=== PATIENT | male | born 1940 | race African-American/Black ===

== ENCOUNTER 2016-11-28 09:50 | Inpatient (IN) | payer OTHER ==
[~2016-11-28] VITALS: Ht 180.3 cm; Wt 109.3 kg
[~2016-11-28 09:50] MED LIST: B-121000 MC2 PO; COLACE50 MG PO; COMBIVENT INH14.7 GM IH; ENDOCET 5-3251 EACH PO; FLEXERIL10 MG PO; HYDROCHLOROTHIA25 MG PO; HYTRIN10 MG PO; LOW DOSE ASPIRI81 M1 PO; OXYCODONE-ACET1 EACH PO; TRAMADOL HCL50 MG PO; ZESTRIL40 MG PO
[2016-11-28 11:03] LABS: EOSINOPHIL (%) 2.8 % (0-5); EOSINOPHIL COUNT 0.1 K/uL (0-0.3); HEMATOCRIT 37.6 % (38.0-50.0); IMMATURE GRANULOCYTE (%) 0.3 % (0.0-0.7); INSTRUMENT ABS NEUTROPHIL CT 1.6 K/uL; LYMPHOCYTE COUNT 1.7 K/uL (1.0-2.8); MCH 31.1 PG (29.0-34.0); MCV 94.2 FL (86-99); MEAN PLAT.VOLUME 10.1 uM^3 (9.0-12.4); MONOCYTE (%) 14.5 % (3-12); MONOCYTE COUNT 0.6 K/uL (0-0.8); NEUTROPHIL (%) 39.7 % (45-76); NEUTROPHIL COUNT 1.6 K/uL (1.8-6.4); PLATELET COUNT 119 K/uL (156-360); RBC DIS.WIDTH-SD 48.9 % (39-53); RED BLOOD COUNT 3.99 M/uL (4.00-5.50); WHITE BLOOD COUNT 3.9 K/uL (4.1-10.2)
[2016-11-28 11:10] LABS: INTER. NORMALIZED RATIO 1.1
[2016-11-28 11:14] LABS: CHLORIDE 110 mEq/L (99-109); POTASSIUM 4.1 mEq/L (3.7-5.4); SODIUM 141 mEq/L (136-147)
[2016-11-28 11:16] LABS: GLUCOSE 95 mg/dL (70-99)
[2016-11-28 11:17] LABS: ANION GAP 7 MEQ/L (2-14)
[2016-11-28 11:18] LABS: TOTAL BILIRUBIN 0.4 mg/dL (0.0-1.0)
[2016-11-28 11:19] LABS: ALKALINE PHOSPHATASE 51 IU/L (3-129)
[2016-11-28 11:20] LABS: GFR ESTIMATE (CALCULATED) > 59 mL/min/
[2016-11-28 11:21] LABS: UREA NITROGEN (BUN) 17 mg/dL (9-23)
[2016-11-28] MEDS ORDERED: ALEVE220 MG PO (12:56)
[2016-11-28] MEDS ORDERED: PROVENTIL HFA6.7 GM IH (12:57)
[2016-11-28] MEDS ORDERED: TIMOPTIC-0100 DROP/1 BOTH EYES (13:00)
[2016-11-28] MEDS ORDERED: DUONEB 2.5-0.5 M3 ML AEROSOL (13:00)
[2016-11-28] MEDS ORDERED: XALATAN2.5 ML BOTH EYES (13:12)
[2016-11-28 14:25] VITALS: BP 78/48
[2016-11-28 14:29] VITALS: BP 95/54
[2016-11-28 14:32] VITALS: BP 105/55
[2016-11-28 14:44] VITALS: BP 92/54
[2016-11-28 17:31] LABS: HEMATOCRIT 33.5 % (38.0-50.0)
[2016-11-28 17:39] VITALS: BP 202/84
[2016-11-28 21:24] VITALS: BP 157/84
[2016-11-29] VITALS (8 sets, daily range): BP systolic 96–136; BP diastolic 55–73
[2016-11-29 08:08] LABS: HEMATOCRIT 30.9 % (38.0-50.0); MCH 31.7 PG (29.0-34.0); MCHC 33.3 G/DL (30.0-36.0); MCV 95.1 FL (86-99); MEAN PLAT.VOLUME 10.7 uM^3 (9.0-12.4); PLATELET COUNT 112 K/uL (156-360); RBC DIS.WIDTH-CV 13.9 % (11.8-14.6); RED BLOOD COUNT 3.25 M/uL (4.00-5.50); WHITE BLOOD COUNT 5.2 K/uL (4.1-10.2)
[2016-11-29 08:31] LABS: ANION GAP 8 MEQ/L (2-14); CHLORIDE 111 MEQ/L (99-109); GFR ESTIMATE (CALCULATED) > 59 mL/min/; GLUCOSE 90 mg/dL (70-99); SAMPLE HEMOLYSIS CHECK 0; SAMPLE ICTERIC CHECK 0; SAMPLE LIPEMIA CHECK 0; SODIUM 145 MEQ/L (136-147); UREA NITROGEN (BUN) 12 mg/dL (9-23)
[2016-11-29 19:47] LABS: HEMATOCRIT 29.1 % (38.0-50.0); MCV 96.4 FL (86-99)
[2016-11-29 23:43] LABS: POINT-OF-CARE METER ID UU14162513
[2016-11-30] VITALS (15 sets, daily range): BP systolic 90–151; BP diastolic 50–97
[2016-11-30 00:59] LABS: HEMATOCRIT 24.6 % (38.0-50.0); MCH 31.4 PG (29.0-34.0); MCHC 32.9 G/DL (30.0-36.0); MCV 95.3 FL (86-99); MEAN PLAT.VOLUME 10.9 uM^3 (9.0-12.4); PLATELET COUNT 105 K/uL (156-360); RBC DIS.WIDTH-SD 48.4 % (39-53); WHITE BLOOD COUNT 7.9 K/uL (4.1-10.2)
[2016-11-30 01:01] LABS: RED BLOOD COUNT 2.58 M/uL (4.00-5.50)
[2016-11-30 01:05] LABS: CHLORIDE 111 mEq/L (99-109); POTASSIUM 3.7 mEq/L (3.7-5.4); SODIUM 140 mEq/L (136-147)
[2016-11-30 01:08] LABS: ANION GAP 6 MEQ/L (2-14)
[2016-11-30 01:11] LABS: ALKALINE PHOSPHATASE 42 IU/L (3-129); GFR ESTIMATE (CALCULATED) 59 mL/min/
[2016-11-30 01:12] LABS: GLUCOSE 165 mg/dL (70-99); TOTAL BILIRUBIN 0.3 mg/dL (0.0-1.0); UREA NITROGEN (BUN) 11 mg/dL (9-23)
[2016-11-30 01:16] LABS: INTER. NORMALIZED RATIO 1.1; PROTHROMBIN TIME 12.6 SEC (10.2-12.9)
[2016-11-30 01:19] LABS: PTT 23.7 SEC (25-37)
[2016-11-30 01:47] LABS: METH RESISTANT S AUREUS PCR NEGATIVE (NEGATIVE)
[2016-11-30 01:51] LABS: PROBE CHECK PASS; SPECIMEN PROCESSING CONTROL PASS
[2016-11-30 06:02] LABS: HEMATOCRIT 29.5 % (38.0-50.0); MCHC 34.2 G/DL (30.0-36.0); MCV 93.4 FL (86-99); MEAN PLAT.VOLUME 11.2 uM^3 (9.0-12.4); PLATELET COUNT 95 K/uL (156-360); RBC DIS.WIDTH-CV 14.2 % (11.8-14.6); RBC DIS.WIDTH-SD 48.5 % (39-53); WHITE BLOOD COUNT 7.6 K/uL (4.1-10.2)
[2016-11-30 06:03] LABS: RED BLOOD COUNT 3.16 M/uL (4.00-5.50)
[2016-11-30 06:30] LABS: ANION GAP 9 MEQ/L (2-14); CHLORIDE 111 MEQ/L (99-109); POTASSIUM 4.3 MEQ/L (3.7-5.4); SAMPLE HEMOLYSIS CHECK 0; SAMPLE ICTERIC CHECK 0; SAMPLE LIPEMIA CHECK 0; SODIUM 141 MEQ/L (136-147)
[2016-11-30 06:36] LABS: GFR ESTIMATE (CALCULATED) > 59 mL/min/; GLUCOSE 139 mg/dL (70-99); UREA NITROGEN (BUN) 10 mg/dL (9-23)
[2016-11-30 15:57] LABS: HEMATOCRIT 28.2 % (38.0-50.0); HEMATOCRIT 28.5 % (38.0-50.0); MCHC 33.3 G/DL (30.0-36.0); MCV 95.9 FL (86-99); MEAN PLAT.VOLUME 10.6 uM^3 (9.0-12.4); PLATELET COUNT 98 K/uL (156-360); RBC DIS.WIDTH-CV 14.8 % (11.8-14.6); RBC DIS.WIDTH-SD 51.8 % (39-53); RED BLOOD COUNT 2.94 M/uL (4.00-5.50); WHITE BLOOD COUNT 7.2 K/uL (4.1-10.2)
[2016-11-30 23:09] LABS: HEMATOCRIT 26.1 % (38.0-50.0); MCH 31.4 PG (29.0-34.0); MCHC 33.3 G/DL (30.0-36.0); MCV 94.2 FL (86-99); MEAN PLAT.VOLUME 10.5 uM^3 (9.0-12.4); PLATELET COUNT 99 K/uL (156-360); RBC DIS.WIDTH-CV 14.5 % (11.8-14.6); RBC DIS.WIDTH-SD 49.1 % (39-53); RED BLOOD COUNT 2.77 M/uL (4.00-5.50); WHITE BLOOD COUNT 7.3 K/uL (4.1-10.2)
[2016-12-01 03:59] VITALS: BP 146/72
[2016-12-01 04:06] LABS: EOSINOPHIL (%) 0.9 % (0-5); EOSINOPHIL COUNT 0.1 K/uL (0-0.3); IMMATURE GRANULOCYTE (%) 0.3 % (0.0-0.7); INSTRUMENT ABS NEUTROPHIL CT 3.2 K/uL; LYMPHOCYTE COUNT 2.7 K/uL (1.0-2.8); MCH 30.8 PG (29.0-34.0); MCHC 32.7 G/DL (30.0-36.0); MCV 94.2 FL (86-99); MEAN PLAT.VOLUME 10.1 uM^3 (9.0-12.4); MONOCYTE (%) 12.2 % (3-12); MONOCYTE COUNT 0.8 K/uL (0-0.8); NEUTROPHIL (%) 47.4 % (45-76); NEUTROPHIL COUNT 3.2 K/uL (1.8-6.4); PLATELET COUNT 96 K/uL (156-360); RBC DIS.WIDTH-CV 14.5 % (11.8-14.6); RBC DIS.WIDTH-SD 49.6 % (39-53); RED BLOOD COUNT 2.76 M/uL (4.00-5.50); WHITE BLOOD COUNT 6.8 K/uL (4.1-10.2)
[2016-12-01 04:14] LABS: CHLORIDE 110 mEq/L (99-109); POTASSIUM 4.1 mEq/L (3.7-5.4); SODIUM 143 mEq/L (136-147)
[2016-12-01 04:16] LABS: GLUCOSE 111 mg/dL (70-99)
[2016-12-01 04:18] LABS: ANION GAP 6 MEQ/L (2-14)
[2016-12-01 04:20] LABS: GFR ESTIMATE (CALCULATED) 54 mL/min/
[2016-12-01 04:21] LABS: UREA NITROGEN (BUN) 9 mg/dL (9-23)
[2016-12-01 06:55] VITALS: BP 116/64
[2016-12-01 11:44] VITALS: BP 166/77
[2016-12-01 13:18] LABS: HEMATOCRIT 26.7 % (38.0-50.0)
[2016-12-01 15:27] VITALS: BP 159/74
[2016-12-01 18:26] LABS: MCV 96.7 FL (86-99)
[2016-12-01 19:54] VITALS: BP 156/80
[2016-12-01 23:04] VITALS: BP 152/74
[2016-12-02] VITALS (7 sets, daily range): BP systolic 132–158; BP diastolic 64–80
[2016-12-02 00:14] LABS: HEMATOCRIT 25.4 % (38.0-50.0); MCV 95.5 FL (86-99)
[2016-12-02 02:10] LABS: HEMATOCRIT 22.5 % (38.0-50.0); MCH 31.5 PG (29.0-34.0); MCHC 33.3 G/DL (30.0-36.0); MCV 94.5 FL (86-99); PLATELET COUNT 98 K/uL (156-360); RBC DIS.WIDTH-CV 14.3 % (11.8-14.6); RBC DIS.WIDTH-SD 48.2 % (39-53); RED BLOOD COUNT 2.38 M/uL (4.00-5.50); WHITE BLOOD COUNT 6.6 K/uL (4.1-10.2)
[2016-12-02 08:50] LABS: HEMATOCRIT 24.5 % (38.0-50.0); MCH 31.9 PG (29.0-34.0); MCHC 33.5 G/DL (30.0-36.0); MCV 95.3 FL (86-99); MEAN PLAT.VOLUME 10.2 uM^3 (9.0-12.4); PLATELET COUNT 99 K/uL (156-360); RBC DIS.WIDTH-CV 14.8 % (11.8-14.6); RBC DIS.WIDTH-SD 50.4 % (39-53); RED BLOOD COUNT 2.57 M/uL (4.00-5.50); WHITE BLOOD COUNT 6.8 K/uL (4.1-10.2)
[2016-12-02 14:16] LABS: HEMATOCRIT 25.4 % (38.0-50.0); MCHC 33.5 G/DL (30.0-36.0); MCV 95.5 FL (86-99); MEAN PLAT.VOLUME 10.5 uM^3 (9.0-12.4); PLATELET COUNT 109 K/uL (156-360); RBC DIS.WIDTH-CV 15.4 % (11.8-14.6); RBC DIS.WIDTH-SD 52.5 % (39-53); RED BLOOD COUNT 2.66 M/uL (4.00-5.50); WHITE BLOOD COUNT 7.7 K/uL (4.1-10.2)
[2016-12-02 14:39] LABS: ANION GAP 10 MEQ/L (2-14); CHLORIDE 110 MEQ/L (99-109); GFR ESTIMATE (CALCULATED) > 59 mL/min/; GLUCOSE 125 mg/dL (70-99); SAMPLE HEMOLYSIS CHECK 0; SAMPLE ICTERIC CHECK 0; SAMPLE LIPEMIA CHECK 0; SODIUM 143 MEQ/L (136-147); UREA NITROGEN (BUN) 8 mg/dL (9-23)
[2016-12-02 20:28] LABS: HEMATOCRIT 24.8 % (38.0-50.0); MCH 30.9 PG (29.0-34.0); MCHC 32.3 G/DL (30.0-36.0); MCV 95.8 FL (86-99); PLAT.SUFFICIENCY DECREASED; PLATELET CLUMPS PRESENT - PLATELET COUNTS APPEARS DECREASED; RBC DIS.WIDTH-CV 15.1 % (11.8-14.6); RBC DIS.WIDTH-SD 51.6 % (39-53); RED BLOOD COUNT 2.59 M/uL (4.00-5.50); WHITE BLOOD COUNT 6.8 K/uL (4.1-10.2)
[2016-12-02 22:10] LABS: PLATELET COUNT UNABLE TO REPORT K/uL (156-360)
[2016-12-03] VITALS (8 sets, daily range): BP systolic 136–166; BP diastolic 66–86
[2016-12-03 03:36] LABS: HEMATOCRIT 25.1 % (38.0-50.0); MCH 31.2 PG (29.0-34.0); MCHC 33.5 G/DL (30.0-36.0); MCV 93.3 FL (86-99); MEAN PLAT.VOLUME 10.6 uM^3 (9.0-12.4); RBC DIS.WIDTH-CV 14.9 % (11.8-14.6); RBC DIS.WIDTH-SD 50.2 % (39-53); RED BLOOD COUNT 2.69 M/uL (4.00-5.50); WHITE BLOOD COUNT 7.2 K/uL (4.1-10.2)
[2016-12-03 03:38] LABS: PLATELET COUNT 110 K/uL (156-360)
[2016-12-03 09:30] LABS: MCH 32.7 PG (29.0-34.0); MCV 96.2 FL (86-99); MEAN PLAT.VOLUME 10.3 uM^3 (9.0-12.4); PLATELET COUNT 110 K/uL (156-360); RBC DIS.WIDTH-CV 15.4 % (11.8-14.6); RBC DIS.WIDTH-SD 52.5 % (39-53); WHITE BLOOD COUNT 7.3 K/uL (4.1-10.2)
[2016-12-03 16:03] LABS: HEMATOCRIT 24.1 % (38.0-50.0); MCV 96.4 FL (86-99)
[2016-12-03 23:00] LABS: HEMATOCRIT 27.3 % (38.0-50.0); MCV 94.1 FL (86-99)
[2016-12-04 00:20] VITALS: BP 165/70
[2016-12-04 02:22] VITALS: BP 158/70
[2016-12-04 02:24] VITALS: BP 145/72
[2016-12-04 05:10] LABS: EOSINOPHIL (%) 2.2 % (0-5); EOSINOPHIL COUNT 0.2 K/uL (0-0.3); HEMATOCRIT 26.9 % (38.0-50.0); IMMATURE GRANULOCYTE (%) 0.4 % (0.0-0.7); INSTRUMENT ABS NEUTROPHIL CT 4.1 K/uL; LYMPHOCYTE COUNT 2.5 K/uL (1.0-2.8); MCH 32.3 PG (29.0-34.0); MCHC 34.2 G/DL (30.0-36.0); MCV 94.4 FL (86-99); MEAN PLAT.VOLUME 10.3 uM^3 (9.0-12.4); MONOCYTE (%) 11.2 % (3-12); MONOCYTE COUNT 0.9 K/uL (0-0.8); NEUTROPHIL (%) 53.2 % (45-76); NEUTROPHIL COUNT 4.1 K/uL (1.8-6.4); PLATELET COUNT 122 K/uL (156-360); RBC DIS.WIDTH-CV 15.3 % (11.8-14.6); RBC DIS.WIDTH-SD 51.6 % (39-53); RED BLOOD COUNT 2.85 M/uL (4.00-5.50); WHITE BLOOD COUNT 7.7 K/uL (4.1-10.2)
[2016-12-04 05:36] LABS: ANION GAP 7 MEQ/L (2-14); CHLORIDE 110 MEQ/L (99-109); GFR ESTIMATE (CALCULATED) > 59 mL/min/; GLUCOSE 114 mg/dL (70-99); POTASSIUM 3.8 MEQ/L (3.7-5.4); SAMPLE HEMOLYSIS CHECK 0; SAMPLE ICTERIC CHECK 0; SAMPLE LIPEMIA CHECK 0; SODIUM 144 MEQ/L (136-147); UREA NITROGEN (BUN) 7 mg/dL (9-23)
[2016-12-04 07:27] VITALS: BP 162/70
[2016-12-04 10:32] LABS: HEMATOCRIT 28.1 % (38.0-50.0)
[2016-12-04 15:16] VITALS: BP 145/81
[2016-12-05 00:47] VITALS: BP 167/83
[2016-12-05 05:20] VITALS: BP 136/64
[2016-12-05 07:25] LABS: HEMATOCRIT 27.3 % (38.0-50.0); MCV 95.8 FL (86-99)
[2016-12-05 08:14] VITALS: BP 132/66
[2016-12-05 09:27] LABS: HEMATOCRIT 27.2 % (38.0-50.0); MCV 95.8 FL (86-99)
[2016-12-05 13:18] VITALS: BP 122/59
[2016-12-05 16:13] LABS: HEMATOCRIT 26.7 % (38.0-50.0); MCV 97.8 FL (86-99)
[2016-12-05 20:32] VITALS: BP 138/69
[2016-12-05 21:52] LABS: HEMATOCRIT 26.9 % (38.0-50.0); MCV 96.1 FL (86-99)
[2016-12-05 23:49] VITALS: BP 129/64
[2016-12-06 04:12] VITALS: BP 115/58
[2016-12-06 06:07] LABS: MCH 32.1 PG (29.0-34.0); MCHC 32.9 G/DL (30.0-36.0); MCV 97.6 FL (86-99); MEAN PLAT.VOLUME 10.3 uM^3 (9.0-12.4); PLATELET COUNT 126 K/uL (156-360); RBC DIS.WIDTH-CV 15.1 % (11.8-14.6); RBC DIS.WIDTH-SD 53.6 % (39-53); RED BLOOD COUNT 2.46 M/uL (4.00-5.50); WHITE BLOOD COUNT 9.1 K/uL (4.1-10.2)
[2016-12-06 06:36] LABS: ANION GAP 7 MEQ/L (2-14); CHLORIDE 108 MEQ/L (99-109); GFR ESTIMATE (CALCULATED) 59 mL/min/; GLUCOSE 102 mg/dL (70-99); POTASSIUM 3.8 MEQ/L (3.7-5.4); SAMPLE HEMOLYSIS CHECK 0; SAMPLE ICTERIC CHECK 0; SAMPLE LIPEMIA CHECK 0; SODIUM 143 MEQ/L (136-147); UREA NITROGEN (BUN) 13 mg/dL (9-23)
[2016-12-06 07:44] VITALS: BP 142/67
[2016-12-06 12:03] VITALS: BP 148/90
[2016-12-06 16:40] VITALS: BP 148/70
[2016-12-06 20:00] VITALS: BP 135/65
[2016-12-06 23:55] VITALS: BP 135/72
[2016-12-07 04:00] VITALS: BP 145/68
[2016-12-07 05:00] LABS: EOSINOPHIL (%) 1.3 % (0-5); EOSINOPHIL COUNT 0.1 K/uL (0-0.3); HEMATOCRIT 24.2 % (38.0-50.0); IMMATURE GRANULOCYTE (%) 0.4 % (0.0-0.7); LYMPHOCYTE COUNT 1.5 K/uL (1.0-2.8); MCH 30.6 PG (29.0-34.0); MCHC 31.8 G/DL (30.0-36.0); MONOCYTE (%) 14.1 % (3-12); MONOCYTE COUNT 1.1 K/uL (0-0.8); NEUTROPHIL (%) 65.1 % (45-76); RBC DIS.WIDTH-CV 14.8 % (11.8-14.6); RBC DIS.WIDTH-SD 51.8 % (39-53); RED BLOOD COUNT 2.52 M/uL (4.00-5.50); WHITE BLOOD COUNT 7.6 K/uL (4.1-10.2)
[2016-12-07 05:29] LABS: ANION GAP 9 MEQ/L (2-14); CHLORIDE 107 MEQ/L (99-109); GFR ESTIMATE (CALCULATED) > 59 mL/min/; GLUCOSE 108 mg/dL (70-99); POTASSIUM 3.4 MEQ/L (3.7-5.4); SAMPLE HEMOLYSIS CHECK 0; SAMPLE ICTERIC CHECK 0; SAMPLE LIPEMIA CHECK 0; SODIUM 141 MEQ/L (136-147); UREA NITROGEN (BUN) 12 mg/dL (9-23)
[2016-12-07 05:49] LABS: HEMATOLOGY COMMENT 1 SN; PLAT.SUFFICIENCY DECREASED
[2016-12-07 05:54] LABS: PLATELET COUNT UNABLE TO REPORT K/uL (156-360)
[2016-12-07 07:50] VITALS: BP 155/74
[2016-12-07 11:33] VITALS: BP 151/71
[2016-12-07 15:22] VITALS: BP 177/80
[2016-12-07 20:00] VITALS: BP 136/71
[2016-12-07 23:55] VITALS: BP 139/77; BP 149/72
[2016-12-08 00:39] LABS: ADD MIUA? YES; BILIRUBIN NEGATIVE; BLOOD MODERATE; COLOR YELLOW ((YELLOW)); GLUCOSE (STRIP) NEGATIVE; KETONES NEGATIVE; LEUKOCYTES SMALL; NITRITE NEGATIVE; PROTEIN (STRIP) 30; SPECIFIC GRAVITY 1.017 (1.000-1.030)
[2016-12-08 00:42] LABS: BACTERIA RARE /HPF; EPITHELIAL CELLS RARE /HPF; HYALINE CASTS 0-5 /LPF; MUCUS TRACE /LPF; RED BLOOD CELLS 20-30 /HPF (0-5); UCUL ADDED? YES
[2016-12-08 03:54] VITALS: BP 130/82
[2016-12-08 07:23] LABS: HEMATOCRIT 28.4 % (38.0-50.0); MCH 30.9 PG (29.0-34.0); MCHC 32.7 G/DL (30.0-36.0); MCV 94.4 FL (86-99); MEAN PLAT.VOLUME 10.5 uM^3 (9.0-12.4); RBC DIS.WIDTH-SD 52.1 % (39-53); RED BLOOD COUNT 3.01 M/uL (4.00-5.50); WHITE BLOOD COUNT 6.4 K/uL (4.1-10.2)
[2016-12-08 07:41] VITALS: BP 98/57
[2016-12-08 07:43] LABS: ANION GAP 10 MEQ/L (2-14); CHLORIDE 103 MEQ/L (99-109); GFR ESTIMATE (CALCULATED) > 59 mL/min/; GLUCOSE 125 mg/dL (70-99); POTASSIUM 3.3 MEQ/L (3.7-5.4); SAMPLE HEMOLYSIS CHECK 0; SAMPLE ICTERIC CHECK 0; SAMPLE LIPEMIA CHECK 0; SODIUM 139 MEQ/L (136-147); UREA NITROGEN (BUN) 9 mg/dL (9-23)
[2016-12-08 07:56] LABS: ABS NEUTROPHIL COUNT 5.2; ANISOCYTOSIS 1+; EOSINOPHIL ABS CT 0; INSTRUMENT ABS NEUTROPHIL CT 4.9 K/uL; LYMPHOCYTES 15.1 % (15.0-45.0); MACROCYTES 1+; PLAT.SUFFICIENCY ADEQUATE; POLYCHROMASIA 1+; SEG.NEUTROPHILS 57.5 % (46.0-76.0)
[2016-12-08 08:01] LABS: PLATELET COUNT 181 K/uL (156-360)
[2016-12-08 11:38] VITALS: BP 111/57
[2016-12-08 20:00] VITALS: BP 144/79
[2016-12-09] VITALS: BP 118/64
[2016-12-09 04:15] VITALS: BP 106/63
[2016-12-09 06:11] LABS: HEMATOCRIT 27.6 % (38.0-50.0); MCH 29.8 PG (29.0-34.0); MCHC 32.2 G/DL (30.0-36.0); MCV 92.3 FL (86-99); NRBC (%) 0.3 /100 WBC (0-0); PLATELET COUNT 217 K/uL (156-360); RBC DIS.WIDTH-CV 15.4 % (11.8-14.6); RBC DIS.WIDTH-SD 51.5 % (39-53); RED BLOOD COUNT 2.99 M/uL (4.00-5.50)
[2016-12-09 06:20] LABS: ANION GAP 9 MEQ/L (2-14); CHLORIDE 102 MEQ/L (99-109); GFR ESTIMATE (CALCULATED) 36 mL/min/; GLUCOSE 146 mg/dL (70-99); POTASSIUM 3.7 MEQ/L (3.7-5.4); SAMPLE HEMOLYSIS CHECK 0; SAMPLE ICTERIC CHECK 0; SAMPLE LIPEMIA CHECK 0; SODIUM 137 MEQ/L (136-147); UREA NITROGEN (BUN) 19 mg/dL (9-23)
[2016-12-09 07:10] VITALS: BP 96/55
[2016-12-09 07:22] LABS: ABS NEUTROPHIL COUNT 4.2; ANISOCYTOSIS 2+; BAND NEUTROPHILS 29.2 % (0-8.0); EOSINOPHIL ABS CT 0; INSTRUMENT ABS NEUTROPHIL CT 4.5 K/uL; MACROCYTES 2+; METAMYELOCYTES 0.9 %; MYELOCYTES 6.2 %; PLAT.SUFFICIENCY ADEQUATE; SEG.NEUTROPHILS 41.6 % (46.0-76.0); SMUDGE CELLS 2.7
[2016-12-09 17:08] VITALS: BP 104/57
[2016-12-09 21:00] VITALS: BP 118/70
[2016-12-10] VITALS (7 sets, daily range): BP systolic 107–140; BP diastolic 56–75
[2016-12-10 06:10] LABS: ANION GAP 9 MEQ/L (2-14); CHLORIDE 104 MEQ/L (99-109); GFR ESTIMATE (CALCULATED) 38 mL/min/; GLUCOSE 136 mg/dL (70-99); SAMPLE HEMOLYSIS CHECK 0; SAMPLE ICTERIC CHECK 0; SAMPLE LIPEMIA CHECK 0; SODIUM 137 MEQ/L (136-147); UREA NITROGEN (BUN) 27 mg/dL (9-23)
[2016-12-10 06:26] LABS: HEMATOCRIT 23.8 % (38.0-50.0); MCH 29.4 PG (29.0-34.0); MCHC 32.4 G/DL (30.0-36.0); MCV 90.8 FL (86-99); MEAN PLAT.VOLUME 10.6 uM^3 (9.0-12.4); NRBC (%) 0.5 /100 WBC (0-0); PLATELET COUNT 206 K/uL (156-360); RBC DIS.WIDTH-CV 15.8 % (11.8-14.6); RBC DIS.WIDTH-SD 52.4 % (39-53); RED BLOOD COUNT 2.62 M/uL (4.00-5.50); WHITE BLOOD COUNT 9.5 K/uL (4.1-10.2)
[2016-12-10 06:58] LABS: ABS NEUTROPHIL COUNT 8.3; ANISOCYTOSIS 2+; BAND NEUTROPHILS 19.3 % (0-8.0); BURR CELLS 1+; EOSINOPHIL ABS CT 0; INSTRUMENT ABS NEUTROPHIL CT 8.2 K/uL; LYMPHOCYTES 3.5 % (15.0-45.0); MACROCYTES 2+; METAMYELOCYTES 0.9 %; MYELOCYTES 1.8 %; PLAT.SUFFICIENCY ADEQUATE; POIKILOCYTOSIS 2+; SMUDGE CELLS 0.9; TARGET CELLS 1+
[2016-12-10 07:12] LABS: SEG.NEUTROPHILS 68.4 % (46.0-76.0)
[2016-12-10 18:22] LABS: ABS NEUTROPHIL COUNT 10.4; ANISOCYTOSIS 2+; BAND NEUTROPHILS 10.5 % (0-8.0); BURR CELLS 2+; EOSINOPHIL ABS CT 0; HEMATOCRIT 26.1 % (38.0-50.0); HEMATOLOGY COMMENT 1 SN; HYPOCHROMASIA 2+; INSTRUMENT ABS NEUTROPHIL CT 10.3 K/uL; MACROCYTES 2+; MCH 29.8 PG (29.0-34.0); MCHC 32.6 G/DL (30.0-36.0); MCV 91.6 FL (86-99); MEAN PLAT.VOLUME 10.5 uM^3 (9.0-12.4); MYELOCYTES 0.9 %; NRBC (%) 0.7 /100 WBC (0-0); NUCLEATED RBC'S 0.9; PLAT.SUFFICIENCY ADEQUATE; PLATELET COUNT 204 K/uL (156-360); POIKILOCYTOSIS 2+; POLYCHROMASIA 1+; RBC DIS.WIDTH-CV 15.6 % (11.8-14.6); RBC DIS.WIDTH-SD 51.9 % (39-53); RED BLOOD COUNT 2.85 M/uL (4.00-5.50); SCHISTOCYTES 1+; SEG.NEUTROPHILS 78.1 % (46.0-76.0); WHITE BLOOD COUNT 11.7 K/uL (4.1-10.2)
[2016-12-11 00:10] VITALS: BP 119/64
[2016-12-11 04:10] VITALS: BP 147/93
[2016-12-11 05:33] LABS: HEMATOCRIT 26.6 % (38.0-50.0); MCH 30.1 PG (29.0-34.0); MCHC 33.1 G/DL (30.0-36.0); MCV 91.1 FL (86-99); MEAN PLAT.VOLUME 10.8 uM^3 (9.0-12.4); NRBC (%) 0.3 /100 WBC (0-0); PLATELET COUNT 241 K/uL (156-360); RBC DIS.WIDTH-CV 15.9 % (11.8-14.6); RBC DIS.WIDTH-SD 53.5 % (39-53); RED BLOOD COUNT 2.92 M/uL (4.00-5.50); WHITE BLOOD COUNT 11.6 K/uL (4.1-10.2)
[2016-12-11 06:03] LABS: EOSINOPHIL (%) 0 % (0-5); IMMATURE GRANULOCYTE (%) 0.5 % (0.0-0.7); IMMATURE GRANULOCYTE COUNT 0.1 K/uL; INSTRUMENT ABS NEUTROPHIL CT 10.3 K/uL; LYMPHOCYTE COUNT 0.7 K/uL (1.0-2.8); MONOCYTE (%) 5.6 % (3-12); MONOCYTE COUNT 0.7 K/uL (0-0.8); NEUTROPHIL COUNT 10.3 K/uL (1.8-6.4)
[2016-12-11 06:05] LABS: ANION GAP 8 MEQ/L (2-14); CHLORIDE 105 MEQ/L (99-109); GFR ESTIMATE (CALCULATED) 40 mL/min/; GLUCOSE 123 mg/dL (70-99); POTASSIUM 3.7 MEQ/L (3.7-5.4); SAMPLE HEMOLYSIS CHECK 0; SAMPLE ICTERIC CHECK 0; SAMPLE LIPEMIA CHECK 0; SODIUM 139 MEQ/L (136-147); UREA NITROGEN (BUN) 32 mg/dL (9-23)
[2016-12-11 08:01] VITALS: BP 146/74
[2016-12-11 15:57] VITALS: BP 145/75
[2016-12-11 19:15] VITALS: BP 153/69
[2016-12-12 00:10] VITALS: BP 146/90
[2016-12-12 04:10] VITALS: BP 148/79
[2016-12-12 05:16] LABS: HEMATOCRIT 28.3 % (38.0-50.0); MCH 29.8 PG (29.0-34.0); MCHC 32.2 G/DL (30.0-36.0); MCV 92.8 FL (86-99); PLATELET COUNT 273 K/uL (156-360); RBC DIS.WIDTH-SD 54.9 % (39-53); RED BLOOD COUNT 3.05 M/uL (4.00-5.50); WHITE BLOOD COUNT 10.7 K/uL (4.1-10.2)
[2016-12-12 05:45] LABS: ANION GAP 6 MEQ/L (2-14); CHLORIDE 105 MEQ/L (99-109); GFR ESTIMATE (CALCULATED) 45 mL/min/; POTASSIUM 3.8 MEQ/L (3.7-5.4); SAMPLE HEMOLYSIS CHECK 0; SAMPLE ICTERIC CHECK 0; SAMPLE LIPEMIA CHECK 0; SODIUM 139 MEQ/L (136-147); UREA NITROGEN (BUN) 27 mg/dL (9-23)
[2016-12-12 05:51] LABS: GLUCOSE 89 mg/dL (70-99)
[2016-12-12 08:38] VITALS: BP 139/81
[2016-12-12 13:00] VITALS: BP 168/89
[2016-12-12 20:26] VITALS: BP 162/87
[2016-12-12 22:14] VITALS: BP 171/84
[2016-12-13 03:08] VITALS: BP 158/72
[2016-12-13 05:20] LABS: CHLORIDE 108 mEq/L (99-109); POTASSIUM 3.8 mEq/L (3.7-5.4); SODIUM 144 mEq/L (136-147)
[2016-12-13 05:22] LABS: GLUCOSE 87 mg/dL (70-99)
[2016-12-13 05:23] LABS: ANION GAP 13 MEQ/L (2-14)
[2016-12-13 05:25] LABS: GFR ESTIMATE (CALCULATED) 59 mL/min/
[2016-12-13 05:26] LABS: UREA NITROGEN (BUN) 23 mg/dL (9-23)
[2016-12-13 05:37] LABS: HEMATOCRIT 28.2 % (38.0-50.0); MCHC 33.3 G/DL (30.0-36.0); MCV 90.1 FL (86-99); MEAN PLAT.VOLUME 10.1 uM^3 (9.0-12.4); PLATELET COUNT 299 K/uL (156-360); RBC DIS.WIDTH-CV 16.3 % (11.8-14.6); RBC DIS.WIDTH-SD 53.6 % (39-53); RED BLOOD COUNT 3.13 M/uL (4.00-5.50); WHITE BLOOD COUNT 10.9 K/uL (4.1-10.2)
[2016-12-13 07:34] VITALS: BP 178/86
[2016-12-13 09:56] LABS: MAGNESIUM 2.4 mg/dL (1.3-2.7)
[2016-12-13 10:20] LABS: TRIGLYCERIDES 113 MG/DL (Normal: <150)
[2016-12-13 10:38] LABS: PREALBUMIN 4.9 mg/dL (10-40)
[2016-12-13 11:43] VITALS: BP 166/79
[2016-12-13 15:41] VITALS: BP 181/77
[2016-12-13 20:00] VITALS: BP 132/101
[2016-12-14 05:05] LABS: EOSINOPHIL (%) 1.6 % (0-5); EOSINOPHIL COUNT 0.2 K/uL (0-0.3); HEMATOCRIT 27.9 % (38.0-50.0); IMMATURE GRANULOCYTE (%) 1.3 % (0.0-0.7); IMMATURE GRANULOCYTE COUNT 0.1 K/uL; INSTRUMENT ABS NEUTROPHIL CT 6.8 K/uL; LYMPHOCYTE COUNT 0.9 K/uL (1.0-2.8); MCH 29.8 PG (29.0-34.0); MCHC 32.6 G/DL (30.0-36.0); MCV 91.5 FL (86-99); MONOCYTE COUNT 1.4 K/uL (0-0.8); NEUTROPHIL (%) 72.6 % (45-76); NEUTROPHIL COUNT 6.8 K/uL (1.8-6.4); NRBC (%) 0.3 /100 WBC (0-0); RBC DIS.WIDTH-CV 16.5 % (11.8-14.6); RBC DIS.WIDTH-SD 55.6 % (39-53); RED BLOOD COUNT 3.05 M/uL (4.00-5.50); WHITE BLOOD COUNT 9.4 K/uL (4.1-10.2)
[2016-12-14 05:17] LABS: CHLORIDE 111 mEq/L (99-109); POTASSIUM 3.5 mEq/L (3.7-5.4); SODIUM 144 mEq/L (136-147)
[2016-12-14 05:19] LABS: MAGNESIUM 1.9 mg/dL (1.3-2.7)
[2016-12-14 05:21] LABS: ANION GAP 9 MEQ/L (2-14)
[2016-12-14 05:22] LABS: TOTAL BILIRUBIN 0.4 mg/dL (0.0-1.0)
[2016-12-14 05:23] LABS: GLUCOSE 146 mg/dL (70-99)
[2016-12-14 05:24] LABS: ALKALINE PHOSPHATASE 48 IU/L (3-129); GFR ESTIMATE (CALCULATED) > 59 mL/min/
[2016-12-14 05:25] LABS: UREA NITROGEN (BUN) 21 mg/dL (9-23)
[2016-12-14 05:26] LABS: DIRECT BILIRUBIN 0.3 mg/dL (0.0-0.3)
[2016-12-14 05:52] LABS: HEMATOLOGY COMMENT 1 SN; PLAT.SUFFICIENCY ADEQUATE; PLATELET COUNT UNABLE TO REPORT K/uL (156-360)
[2016-12-14 08:40] VITALS: BP 167/81
[2016-12-14 12:29] VITALS: BP 1156/73
[2016-12-14 15:22] VITALS: BP 191/83
[2016-12-14 20:20] VITALS: BP 171/99
[2016-12-14 22:58] VITALS: BP 166/70
[2016-12-15] VITALS (7 sets, daily range): BP systolic 107–171; BP diastolic 58–93
[2016-12-15 06:23] LABS: ANION GAP 11 MEQ/L (2-14); CHLORIDE 109 MEQ/L (99-109); GFR ESTIMATE (CALCULATED) > 59 mL/min/; GLUCOSE 172 mg/dL (70-99); POTASSIUM 3.6 MEQ/L (3.7-5.4); SAMPLE HEMOLYSIS CHECK 0; SAMPLE ICTERIC CHECK 0; SAMPLE LIPEMIA CHECK 0; SODIUM 145 MEQ/L (136-147); UREA NITROGEN (BUN) 19 mg/dL (9-23)
[2016-12-15 14:50] LABS: Estimated Average Glucose 114 mg/dL (70-123); HEMOGLOBIN A1c (GLYCOHEMOGLOB) 5.6 % HGB (Below 5.7)
[2016-12-16 04:27] VITALS: BP 129/65
[2016-12-16 04:59] LABS: CHLORIDE 109 mEq/L (99-109); POTASSIUM 3.6 mEq/L (3.7-5.4); SODIUM 144 mEq/L (136-147)
[2016-12-16 05:00] LABS: MAGNESIUM 1.8 mg/dL (1.3-2.7)
[2016-12-16 05:01] LABS: GLUCOSE 157 mg/dL (70-99)
[2016-12-16 05:02] LABS: ANION GAP 9 MEQ/L (2-14)
[2016-12-16 05:05] LABS: GFR ESTIMATE (CALCULATED) > 59 mL/min/
[2016-12-16 05:06] LABS: UREA NITROGEN (BUN) 20 mg/dL (9-23)
[2016-12-16 07:08] VITALS: BP 119/16
[2016-12-16 16:05] VITALS: BP 135/75
[2016-12-16 19:35] VITALS: BP 117/69
[2016-12-16 23:56] VITALS: BP 127/68
[2016-12-17 04:25] VITALS: BP 132/66
[2016-12-17 05:42] LABS: EOSINOPHIL (%) 1.6 % (0-5); EOSINOPHIL COUNT 0.2 K/uL (0-0.3); HEMATOCRIT 27.6 % (38.0-50.0); IMMATURE GRANULOCYTE (%) 1.3 % (0.0-0.7); IMMATURE GRANULOCYTE COUNT 0.1 K/uL; INSTRUMENT ABS NEUTROPHIL CT 6.9 K/uL; LYMPHOCYTE COUNT 1.6 K/uL (1.0-2.8); MCH 30.9 PG (29.0-34.0); MCHC 32.2 G/DL (30.0-36.0); MCV 95.8 FL (86-99); MEAN PLAT.VOLUME 10.4 uM^3 (9.0-12.4); MONOCYTE (%) 13.9 % (3-12); MONOCYTE COUNT 1.4 K/uL (0-0.8); NEUTROPHIL (%) 67.2 % (45-76); NEUTROPHIL COUNT 6.9 K/uL (1.8-6.4); PLATELET COUNT 377 K/uL (156-360); RBC DIS.WIDTH-CV 17.2 % (11.8-14.6); RBC DIS.WIDTH-SD 60.4 % (39-53); RED BLOOD COUNT 2.88 M/uL (4.00-5.50); WHITE BLOOD COUNT 10.2 K/uL (4.1-10.2)
[2016-12-17 06:22] LABS: ALKALINE PHOSPHATASE 68 IU/L (3-129); ANION GAP 8 MEQ/L (2-14); CHLORIDE 107 MEQ/L (99-109); DIRECT BILIRUBIN 0.1 mg/dL (0.0-0.3); GFR ESTIMATE (CALCULATED) 59 mL/min/; GLUCOSE 147 mg/dL (70-99); MAGNESIUM 2.1 mg/dl (1.3-2.7); POTASSIUM 4.1 MEQ/L (3.7-5.4); PREALBUMIN 8.5 mg/dL (10-40); SAMPLE HEMOLYSIS CHECK 0; SAMPLE ICTERIC CHECK 0; SAMPLE LIPEMIA CHECK 0; SODIUM 142 MEQ/L (136-147); TOTAL BILIRUBIN 0.3 MG/DL (0.0-1.0); TRIGLYCERIDES 144 MG/DL (Normal: <150); UREA NITROGEN (BUN) 22 mg/dL (9-23)
[2016-12-17 07:18] VITALS: BP 120/56
[2016-12-17 12:06] VITALS: BP 116/56
[2016-12-17 15:41] VITALS: BP 136/77
[2016-12-17 19:34] VITALS: BP 160/80
[2016-12-18 00:16] VITALS: BP 130/62
[2016-12-18 04:08] VITALS: BP 130/66
[2016-12-18 05:45] LABS: HEMATOCRIT 27.8 % (38.0-50.0); MCH 29.1 PG (29.0-34.0); MCHC 30.6 G/DL (30.0-36.0); MCV 95.2 FL (86-99); MEAN PLAT.VOLUME 10.1 uM^3 (9.0-12.4); PLATELET COUNT 403 K/uL (156-360); RBC DIS.WIDTH-CV 17.1 % (11.8-14.6); RBC DIS.WIDTH-SD 59.9 % (39-53); RED BLOOD COUNT 2.92 M/uL (4.00-5.50); WHITE BLOOD COUNT 11.5 K/uL (4.1-10.2)
[2016-12-18 06:23] LABS: ANION GAP 5 MEQ/L (2-14); CHLORIDE 110 MEQ/L (99-109); GFR ESTIMATE (CALCULATED) > 59 mL/min/; GLUCOSE 149 mg/dL (70-99); MAGNESIUM 2.3 mg/dl (1.3-2.7); POTASSIUM 4.7 MEQ/L (3.7-5.4); SAMPLE HEMOLYSIS CHECK 0; SAMPLE ICTERIC CHECK 0; SAMPLE LIPEMIA CHECK 0; SODIUM 143 MEQ/L (136-147); UREA NITROGEN (BUN) 21 mg/dL (9-23)
[2016-12-18 09:16] VITALS: BP 138/64
[2016-12-18 12:00] VITALS: BP 128/72
[2016-12-18 16:16] VITALS: BP 136/65
[2016-12-18 19:18] VITALS: BP 159/80
[2016-12-19] VITALS (7 sets, daily range): BP systolic 117–145; BP diastolic 64–82
[2016-12-19 05:39] LABS: EOSINOPHIL (%) 1.8 % (0-5); EOSINOPHIL COUNT 0.2 K/uL (0-0.3); HEMATOCRIT 29.3 % (38.0-50.0); IMMATURE GRANULOCYTE (%) 1.1 % (0.0-0.7); IMMATURE GRANULOCYTE COUNT 0.1 K/uL; INSTRUMENT ABS NEUTROPHIL CT 8.8 K/uL; LYMPHOCYTE COUNT 1.5 K/uL (1.0-2.8); MCH 28.9 PG (29.0-34.0); MCHC 30.7 G/DL (30.0-36.0); MCV 94.2 FL (86-99); MEAN PLAT.VOLUME 9.9 uM^3 (9.0-12.4); MONOCYTE (%) 13.6 % (3-12); MONOCYTE COUNT 1.7 K/uL (0-0.8); NEUTROPHIL (%) 71.4 % (45-76); NEUTROPHIL COUNT 8.8 K/uL (1.8-6.4); PLATELET COUNT 433 K/uL (156-360); RBC DIS.WIDTH-SD 58.7 % (39-53); RED BLOOD COUNT 3.11 M/uL (4.00-5.50); WHITE BLOOD COUNT 12.4 K/uL (4.1-10.2)
[2016-12-19 05:55] LABS: ANION GAP 9 MEQ/L (2-14); CHLORIDE 107 MEQ/L (99-109); GFR ESTIMATE (CALCULATED) > 59 mL/min/; GLUCOSE 154 mg/dL (70-99); MAGNESIUM 2.2 mg/dl (1.3-2.7); POTASSIUM 4.3 MEQ/L (3.7-5.4); SAMPLE HEMOLYSIS CHECK 0; SAMPLE ICTERIC CHECK 0; SAMPLE LIPEMIA CHECK 0; SODIUM 141 MEQ/L (136-147); UREA NITROGEN (BUN) 23 mg/dL (9-23)
[2016-12-20 04:04] VITALS: BP 143/77
[2016-12-20 05:19] LABS: HEMATOCRIT 29.1 % (38.0-50.0); MCHC 30.9 G/DL (30.0-36.0); MCV 93.9 FL (86-99); MEAN PLAT.VOLUME 10.1 uM^3 (9.0-12.4); PLATELET COUNT 463 K/uL (156-360); RBC DIS.WIDTH-CV 16.7 % (11.8-14.6); RBC DIS.WIDTH-SD 57.9 % (39-53); WHITE BLOOD COUNT 11.4 K/uL (4.1-10.2)
[2016-12-20 05:50] LABS: ANION GAP 10 MEQ/L (2-14); CHLORIDE 107 MEQ/L (99-109); MAGNESIUM 2.2 mg/dl (1.3-2.7); POTASSIUM 4.4 MEQ/L (3.7-5.4); SAMPLE HEMOLYSIS CHECK 0; SAMPLE ICTERIC CHECK 0; SAMPLE LIPEMIA CHECK 0; SODIUM 140 MEQ/L (136-147)
[2016-12-20 05:55] LABS: GFR ESTIMATE (CALCULATED) > 59 mL/min/; GLUCOSE 139 mg/dL (70-99); UREA NITROGEN (BUN) 26 mg/dL (9-23)
[2016-12-20 07:42] VITALS: BP 119/69
[2016-12-20 20:56] VITALS: BP 127/75
[2016-12-21] VITALS (7 sets, daily range): BP systolic 109–131; BP diastolic 56–65
[2016-12-21 06:19] LABS: ANION GAP 9 MEQ/L (2-14); CHLORIDE 108 MEQ/L (99-109); GFR ESTIMATE (CALCULATED) > 59 mL/min/; GLUCOSE 138 mg/dL (70-99); MAGNESIUM 1.9 mg/dl (1.3-2.7); POTASSIUM 4.5 MEQ/L (3.7-5.4); SAMPLE HEMOLYSIS CHECK 0; SAMPLE ICTERIC CHECK 0; SAMPLE LIPEMIA CHECK 0; SODIUM 140 MEQ/L (136-147); UREA NITROGEN (BUN) 29 mg/dL (9-23)
[2016-12-22 05:07] VITALS: BP 102/56
[2016-12-22 06:27] LABS: ANION GAP 10 MEQ/L (2-14); CHLORIDE 103 MEQ/L (99-109); GFR ESTIMATE (CALCULATED) 54 mL/min/; GLUCOSE 126 mg/dL (70-99); MAGNESIUM 1.9 mg/dl (1.3-2.7); POTASSIUM 4.2 MEQ/L (3.7-5.4); SAMPLE HEMOLYSIS CHECK 0; SAMPLE ICTERIC CHECK 0; SAMPLE LIPEMIA CHECK 0; SODIUM 135 MEQ/L (136-147); UREA NITROGEN (BUN) 32 mg/dL (9-23)
[2016-12-22 08:28] VITALS: BP 136/66
[2016-12-22 09:06] LABS: HEMATOCRIT 30.5 % (38.0-50.0)
[2016-12-22 12:00] VITALS: BP 141/81
[2016-12-22 16:07] VITALS: BP 154/87
[2016-12-22 19:00] VITALS: BP 106/58
[2016-12-22 23:36] VITALS: BP 108/60
[2016-12-23 03:46] VITALS: BP 112/58
[2016-12-23 06:49] LABS: ANION GAP 11 MEQ/L (2-14); CHLORIDE 107 MEQ/L (99-109); GFR ESTIMATE (CALCULATED) 54 mL/min/; GLUCOSE 144 mg/dL (70-99); MAGNESIUM 1.9 mg/dl (1.3-2.7); POTASSIUM 4.7 MEQ/L (3.7-5.4); SAMPLE HEMOLYSIS CHECK 0; SAMPLE ICTERIC CHECK 0; SAMPLE LIPEMIA CHECK 0; SODIUM 138 MEQ/L (136-147); UREA NITROGEN (BUN) 38 mg/dL (9-23)
[2016-12-23 07:00] VITALS: BP 129/69
[2016-12-23 08:58] LABS: HEMATOCRIT 28.5 % (38.0-50.0); MCH 30.7 PG (29.0-34.0); MCHC 32.6 G/DL (30.0-36.0); MCV 94.1 FL (86-99); MEAN PLAT.VOLUME 9.9 uM^3 (9.0-12.4); PLATELET COUNT 401 K/uL (156-360); RBC DIS.WIDTH-CV 16.6 % (11.8-14.6); RBC DIS.WIDTH-SD 57.6 % (39-53); RED BLOOD COUNT 3.03 M/uL (4.00-5.50); WHITE BLOOD COUNT 10.5 K/uL (4.1-10.2)
[2016-12-23 17:30] VITALS: BP 111/60
[2016-12-23 19:00] VITALS: BP 120/66
[2016-12-24 05:12] LABS: EOSINOPHIL (%) 1.9 % (0-5); EOSINOPHIL COUNT 0.2 K/uL (0-0.3); IMMATURE GRANULOCYTE (%) 0.9 % (0.0-0.7); IMMATURE GRANULOCYTE COUNT 0.1 K/uL; INSTRUMENT ABS NEUTROPHIL CT 5.9 K/uL; LYMPHOCYTE COUNT 1.7 K/uL (1.0-2.8); MCH 29.9 PG (29.0-34.0); MCHC 31.4 G/DL (30.0-36.0); MCV 95.2 FL (86-99); MEAN PLAT.VOLUME 10.4 uM^3 (9.0-12.4); MONOCYTE (%) 13.9 % (3-12); MONOCYTE COUNT 1.3 K/uL (0-0.8); NEUTROPHIL COUNT 5.9 K/uL (1.8-6.4); PLATELET COUNT 365 K/uL (156-360); RBC DIS.WIDTH-CV 16.5 % (11.8-14.6); RED BLOOD COUNT 2.94 M/uL (4.00-5.50); WHITE BLOOD COUNT 9.1 K/uL (4.1-10.2)
[2016-12-24 05:37] LABS: ALKALINE PHOSPHATASE 72 IU/L (3-129); ANION GAP 9 MEQ/L (2-14); CHLORIDE 109 MEQ/L (99-109); DIRECT BILIRUBIN 0.1 mg/dL (0.0-0.3); GFR ESTIMATE (CALCULATED) 47 mL/min/; GLUCOSE 147 mg/dL (70-99); MAGNESIUM 1.9 mg/dl (1.3-2.7); POTASSIUM 5.2 MEQ/L (3.7-5.4); PREALBUMIN 15.1 mg/dL (10-40); SAMPLE HEMOLYSIS CHECK 0; SAMPLE ICTERIC CHECK 0; SAMPLE LIPEMIA CHECK 0; SODIUM 138 MEQ/L (136-147); TRIGLYCERIDES 145 MG/DL (Normal: <150); UREA NITROGEN (BUN) 46 mg/dL (9-23)
[2016-12-24 05:39] VITALS: BP 111/60
[2016-12-24 05:58] LABS: TOTAL BILIRUBIN 0.2 MG/DL (0.0-1.0)
[2016-12-24 08:00] VITALS: BP 105/58
[2016-12-24 11:30] VITALS: BP 97/53
[2016-12-24 15:15] VITALS: BP 102/58
[2016-12-24 20:27] VITALS: BP 106/61
[2016-12-25] VITALS (7 sets, daily range): BP systolic 98–171; BP diastolic 56–65
[2016-12-25 07:12] LABS: ANION GAP 9 MEQ/L (2-14); CHLORIDE 110 MEQ/L (99-109); GFR ESTIMATE (CALCULATED) 51 mL/min/; GLUCOSE 138 mg/dL (70-99); POTASSIUM 5.1 MEQ/L (3.7-5.4); SAMPLE HEMOLYSIS CHECK 0; SAMPLE ICTERIC CHECK 0; SAMPLE LIPEMIA CHECK 0; SODIUM 139 MEQ/L (136-147); UREA NITROGEN (BUN) 55 mg/dL (9-23)
[2016-12-25 07:13] LABS: MAGNESIUM 1.6 mg/dl (1.3-2.7)
[2016-12-25 08:38] LABS: MCH 28.9 PG (29.0-34.0); MCHC 30.4 G/DL (30.0-36.0); MCV 95.2 FL (86-99); MEAN PLAT.VOLUME 10.6 uM^3 (9.0-12.4); PLATELET COUNT 392 K/uL (156-360); RBC DIS.WIDTH-CV 16.3 % (11.8-14.6); RED BLOOD COUNT 2.94 M/uL (4.00-5.50); WHITE BLOOD COUNT 9.5 K/uL (4.1-10.2)
[2016-12-25 20:10] LABS: URINE UREA NITROGEN 9960 MG/24 HR
[2016-12-26 00:01] VITALS: BP 131/63
[2016-12-26 07:10] VITALS: BP 90/52
[2016-12-26 08:13] LABS: ANION GAP 10 MEQ/L (2-14); CHLORIDE 109 MEQ/L (99-109); GFR ESTIMATE (CALCULATED) 54 mL/min/; GLUCOSE 121 mg/dL (70-99); POTASSIUM 4.8 MEQ/L (3.7-5.4); SAMPLE HEMOLYSIS CHECK 0; SAMPLE ICTERIC CHECK 0; SAMPLE LIPEMIA CHECK 0; SODIUM 138 MEQ/L (136-147); UREA NITROGEN (BUN) 53 mg/dL (9-23)
[2016-12-26 11:15] VITALS: BP 98/56
[2016-12-26 15:00] VITALS: BP 113/64
[2016-12-26] MEDS ORDERED: REGLAN5 MG PO (15:56)
[2016-12-26] MEDS ORDERED: CHLORPROMAZINE50 MG PO (15:56)
[2016-12-26] MEDS ORDERED: PANTOPRAZOLE SO40 MG PO (15:56)
== END 2016-12-26 20:20 | DRG 329 ==
LOC: EME 09:50 → EDOF 12:27 → 5WEST 12:27 → EDOF 12:27 → ENRESERV 12:28 → 5WEST 14:04 → ENRESERV 11-29 23:37 → 5WEST 11-29 23:44 → 4WEST 11-29 23:45 → 4EAST 11-29 23:45 → 5WEST 11-29 23:45 → 4WEST 11-29 23:52 → ENRESERV 11-30 22:45 → 4EAST 11-30 23:40 → ENRESERV 12-24 08:40 → 2EASTP 12-24 11:31
PROVIDERS: Emergency Medicine; Family Medicine; Hospitalist; Internal Medicine; Internal Medicine Gastroenterology; Nurse Practitioner Adult Health; Physician Assistant; Physician Assistant Medical; Specialist; Student in an Organized Health Care Education/Training Program
DX: K57.31 Diverticulosis of large intestine without perforation or abscess with bleeding (principal); T81.32XA Disruption of internal operation (surgical) wound, not elsewhere classified, initial encounter; T81.4XXA Infection following a procedure, initial encounter; K65.1 Peritoneal abscess; K91.89 Other postprocedural complications and disorders of digestive system; K56.7 Ileus, unspecified; Y83.2 Surgical operation with anastomosis, bypass or graft as the cause of abnormal reaction of the patient, or of later complication, without mention of misadventure at the time of the procedure; D62 Acute posthemorrhagic anemia; N17.9 Acute kidney failure, unspecified; N36.5 Urethral false passage; K63.5 Polyp of colon; D12.5 Benign neoplasm of sigmoid colon; K62.1 Rectal polyp; D69.6 Thrombocytopenia, unspecified; E43 Unspecified severe protein-calorie malnutrition; K29.50 Unspecified chronic gastritis without bleeding; K63.3 Ulcer of intestine; K25.9 Gastric ulcer, unspecified as acute or chronic, without hemorrhage or perforation; E87.6 Hypokalemia; E87.70 Fluid overload, unspecified; I12.9 Hypertensive chronic kidney disease with stage 1 through stage 4 chronic kidney disease, or unspecified chronic kidney disease; N18.3 Chronic kidney disease, stage 3 (moderate); R06.6 Hiccough; J44.9 Chronic obstructive pulmonary disease, unspecified; R00.1 Bradycardia, unspecified; E66.01 Morbid (severe) obesity due to excess calories; Z68.39 Body mass index [BMI] 39.0-39.9, adult; R42 Dizziness and giddiness; R55 Syncope and collapse; M62.838 Other muscle spasm; R61 Generalized hyperhidrosis; M19.90 Unspecified osteoarthritis, unspecified site; H40.9 Unspecified glaucoma; Z82.49 Family history of ischemic heart disease and other diseases of the circulatory system; Z83.3 Family history of diabetes mellitus; Z87.891 Personal history of nicotine dependence; Z88.0 Allergy status to penicillin; Z96.653 Presence of artificial knee joint, bilateral
CPT/HCPCS: 71010; 71020; 74000; 74020; 74176; 74177; 76937; 78278; 80048; 80053; 80069; 81003; 81050; 82248; 82948; 83036; 83735; 84100; 84134; 84478; 84540; 84630 90; 85014; 85018; 85025; 85025 91; 85027; 85610; 85730; 86850; 86900; 86901; 86920; 87070; 87075; 87076; 87077; 87086; 87185; 87186; 87205; 87641; 88305; 88307; 88342 TC; 93005; 93970; 93971; 94640; 94640 76; 94760; 94799; 97530 GO; 99202; 99281; 99285; A9560; C1753; C9113; G0378; J0131; J0330; J0360; J0692; J0696; J0744; J1100; J1170; J1200; J1644; J1940; J2020; J2354; J2405; J2543; J2710; J2765; J3010; J3480; J7030; J7040; J7050; J7120; P9016; S0030

== ENCOUNTER 2016-12-31 17:59 | Inpatient (IN) | payer OTHER ==
[~2016-12-31] VITALS: Ht 180.3 cm; Wt 108.1 kg
[~2016-12-31 17:59] MED LIST changes: +ALEVE220 MG PO; +CHLORPROMAZINE50 MG PO; +DUONEB 2.5-0.5 M3 ML AEROSOL; +PANTOPRAZOLE SO40 MG PO; +PROVENTIL HFA6.7 GM IH; +REGLAN5 MG PO; +TIMOPTIC-0100 DROP/1 BOTH EYES; +XALATAN2.5 ML BOTH EYES
[2016-12-31 19:12] LABS: EOSINOPHIL (%) 4.1 % (0-5); EOSINOPHIL COUNT 0.3 K/uL (0-0.3); HEMATOCRIT 27.1 % (38.0-50.0); IMMATURE GRANULOCYTE (%) 0.4 % (0.0-0.7); INSTRUMENT ABS NEUTROPHIL CT 4.7 K/uL; LYMPHOCYTE COUNT 1.5 K/uL (1.0-2.8); MCH 29.7 PG (29.0-34.0); MCHC 32.1 G/DL (30.0-36.0); MCV 92.5 FL (86-99); MEAN PLAT.VOLUME 10.1 uM^3 (9.0-12.4); MONOCYTE (%) 12.9 % (3-12); NEUTROPHIL (%) 62.6 % (45-76); NEUTROPHIL COUNT 4.7 K/uL (1.8-6.4); PLATELET COUNT 290 K/uL (156-360); RBC DIS.WIDTH-CV 16.2 % (11.8-14.6); RBC DIS.WIDTH-SD 55.2 % (39-53); RED BLOOD COUNT 2.93 M/uL (4.00-5.50); WHITE BLOOD COUNT 7.5 K/uL (4.1-10.2)
[2016-12-31 19:23] LABS: CHLORIDE 109 mEq/L (99-109); POTASSIUM 4.9 mEq/L (3.7-5.4); SODIUM 137 mEq/L (136-147)
[2016-12-31 19:24] LABS: MAGNESIUM 1.9 mg/dL (1.3-2.7)
[2016-12-31 19:26] LABS: GLUCOSE 114 mg/dL (70-99)
[2016-12-31 19:27] LABS: ANION GAP 11 MEQ/L (2-14)
[2016-12-31 19:28] LABS: TOTAL BILIRUBIN 0.2 mg/dL (0.0-1.0)
[2016-12-31 19:29] LABS: ALKALINE PHOSPHATASE 82 IU/L (3-129)
[2016-12-31 19:30] LABS: GFR ESTIMATE (CALCULATED) 14 mL/min/
[2016-12-31 19:31] LABS: UREA NITROGEN (BUN) 70 mg/dL (9-23)
[2017-01-01] VITALS (7 sets, daily range): BP systolic 93–115; BP diastolic 51–69
[2017-01-01 07:52] LABS: EOSINOPHIL (%) 2.4 % (0-5); EOSINOPHIL COUNT 0.3 K/uL (0-0.3); HEMATOCRIT 26.2 % (38.0-50.0); IMMATURE GRANULOCYTE (%) 0.4 % (0.0-0.7); INSTRUMENT ABS NEUTROPHIL CT 7.8 K/uL; LYMPHOCYTE COUNT 1.2 K/uL (1.0-2.8); MCH 29.5 PG (29.0-34.0); MCHC 31.3 G/DL (30.0-36.0); MCV 94.2 FL (86-99); MEAN PLAT.VOLUME 9.9 uM^3 (9.0-12.4); MONOCYTE (%) 10.9 % (3-12); MONOCYTE COUNT 1.1 K/uL (0-0.8); NEUTROPHIL (%) 74.7 % (45-76); NEUTROPHIL COUNT 7.8 K/uL (1.8-6.4); PLATELET COUNT 267 K/uL (156-360); RBC DIS.WIDTH-CV 16.2 % (11.8-14.6); RBC DIS.WIDTH-SD 55.6 % (39-53); RED BLOOD COUNT 2.78 M/uL (4.00-5.50); WHITE BLOOD COUNT 10.4 K/uL (4.1-10.2)
[2017-01-01 08:20] LABS: ANION GAP 9 MEQ/L (2-14); CHLORIDE 112 MEQ/L (99-109); GFR ESTIMATE (CALCULATED) 20 mL/min/; GLUCOSE 102 mg/dL (70-99); POTASSIUM 4.9 MEQ/L (3.7-5.4); SAMPLE HEMOLYSIS CHECK 0; SAMPLE ICTERIC CHECK 0; SAMPLE LIPEMIA CHECK 0; SODIUM 138 MEQ/L (136-147); UREA NITROGEN (BUN) 62 mg/dL (9-23)
[2017-01-01 10:26] LABS: ADD MIUA? YES; BILIRUBIN NEGATIVE; BLOOD SMALL; COLOR YELLOW ((YELLOW)); GLUCOSE (STRIP) NEGATIVE; KETONES NEGATIVE; LEUKOCYTES LARGE; NITRITE NEGATIVE; PROTEIN (STRIP) NEGATIVE; SPECIFIC GRAVITY 1.014 (1.000-1.030); UROBILINOGEN 0.2 MG/DL (0.2-1.0)
[2017-01-01 10:42] LABS: BACTERIA 1+ /HPF; EPITHELIAL CELLS RARE /HPF; GRANULAR CASTS 0-5 /LPF; MUCUS TRACE /LPF; RED BLOOD CELLS 40-50 /HPF (0-5); UCUL ADDED? YES; WHITE BLOOD CELLS TNTC /HPF (0-5); WHITE BLOOD CELLS CLUMP FEW /HPF (0-5)
[2017-01-02 03:16] VITALS: BP 101/49
[2017-01-02 07:05] LABS: EOSINOPHIL COUNT 0.3 K/uL (0-0.3); HEMATOCRIT 26.8 % (38.0-50.0); IMMATURE GRANULOCYTE (%) 0.3 % (0.0-0.7); INSTRUMENT ABS NEUTROPHIL CT 6.4 K/uL; LYMPHOCYTE COUNT 1.6 K/uL (1.0-2.8); MCH 28.8 PG (29.0-34.0); MCHC 30.6 G/DL (30.0-36.0); MONOCYTE (%) 12.7 % (3-12); MONOCYTE COUNT 1.2 K/uL (0-0.8); NEUTROPHIL COUNT 6.4 K/uL (1.8-6.4); PLATELET COUNT 279 K/uL (156-360); RBC DIS.WIDTH-CV 16.3 % (11.8-14.6); RBC DIS.WIDTH-SD 55.9 % (39-53); RED BLOOD COUNT 2.85 M/uL (4.00-5.50); WHITE BLOOD COUNT 9.5 K/uL (4.1-10.2)
[2017-01-02 07:29] LABS: ANION GAP 9 MEQ/L (2-14); CHLORIDE 113 MEQ/L (99-109); GFR ESTIMATE (CALCULATED) 27 mL/min/; GLUCOSE 116 mg/dL (70-99); POTASSIUM 4.9 MEQ/L (3.7-5.4); SAMPLE HEMOLYSIS CHECK 0; SAMPLE ICTERIC CHECK 0; SAMPLE LIPEMIA CHECK 0; SODIUM 139 MEQ/L (136-147); UREA NITROGEN (BUN) 55 mg/dL (9-23)
[2017-01-02 07:40] VITALS: BP 117/65
[2017-01-02 12:45] VITALS: BP 97/53
[2017-01-02 15:20] VITALS: BP 123/54
[2017-01-02 20:37] VITALS: BP 108/57
[2017-01-02 23:49] VITALS: BP 105/61
[2017-01-03 03:39] VITALS: BP 104/56
[2017-01-03 09:08] VITALS: BP 105/55
[2017-01-03 11:55] VITALS: BP 102/66
[2017-01-03 12:05] LABS: EOSINOPHIL (%) 2.9 % (0-5); EOSINOPHIL COUNT 0.3 K/uL (0-0.3); HEMATOCRIT 27.1 % (38.0-50.0); IMMATURE GRANULOCYTE (%) 0.3 % (0.0-0.7); LYMPHOCYTE COUNT 1.5 K/uL (1.0-2.8); MCH 30.1 PG (29.0-34.0); MCHC 31.7 G/DL (30.0-36.0); MCV 94.8 FL (86-99); MEAN PLAT.VOLUME 9.8 uM^3 (9.0-12.4); MONOCYTE (%) 13.1 % (3-12); MONOCYTE COUNT 1.5 K/uL (0-0.8); NEUTROPHIL (%) 70.7 % (45-76); PLATELET COUNT 254 K/uL (156-360); RBC DIS.WIDTH-CV 16.4 % (11.8-14.6); RBC DIS.WIDTH-SD 57.1 % (39-53); RED BLOOD COUNT 2.86 M/uL (4.00-5.50); WHITE BLOOD COUNT 11.3 K/uL (4.1-10.2)
[2017-01-03 13:17] LABS: ANION GAP 8 MEQ/L (2-14); CHLORIDE 110 MEQ/L (99-109); GFR ESTIMATE (CALCULATED) 40 mL/min/; GLUCOSE 101 mg/dL (70-99); POTASSIUM 4.5 MEQ/L (3.7-5.4); SAMPLE HEMOLYSIS CHECK 0; SAMPLE ICTERIC CHECK 0; SAMPLE LIPEMIA CHECK 0; SODIUM 138 MEQ/L (136-147); UREA NITROGEN (BUN) 45 mg/dL (9-23)
[2017-01-03 15:43] VITALS: BP 98/64
[2017-01-04 00:30] VITALS: BP 108/55
[2017-01-04 06:58] LABS: EOSINOPHIL (%) 3.1 % (0-5); EOSINOPHIL COUNT 0.3 K/uL (0-0.3); HEMATOCRIT 26.1 % (38.0-50.0); IMMATURE GRANULOCYTE (%) 0.4 % (0.0-0.7); INSTRUMENT ABS NEUTROPHIL CT 6.7 K/uL; LYMPHOCYTE COUNT 1.9 K/uL (1.0-2.8); MCH 29.3 PG (29.0-34.0); MCHC 31.4 G/DL (30.0-36.0); MCV 93.2 FL (86-99); MEAN PLAT.VOLUME 9.8 uM^3 (9.0-12.4); MONOCYTE COUNT 1.6 K/uL (0-0.8); NEUTROPHIL (%) 63.3 % (45-76); NEUTROPHIL COUNT 6.7 K/uL (1.8-6.4); PLATELET COUNT 267 K/uL (156-360); RBC DIS.WIDTH-CV 16.2 % (11.8-14.6); RBC DIS.WIDTH-SD 55.4 % (39-53); WHITE BLOOD COUNT 10.5 K/uL (4.1-10.2)
[2017-01-04 07:27] LABS: ANION GAP 10 MEQ/L (2-14); CHLORIDE 108 MEQ/L (99-109); GFR ESTIMATE (CALCULATED) 40 mL/min/; GLUCOSE 89 mg/dL (70-99); POTASSIUM 4.4 MEQ/L (3.7-5.4); SAMPLE HEMOLYSIS CHECK 0; SAMPLE ICTERIC CHECK 0; SAMPLE LIPEMIA CHECK 0; SODIUM 137 MEQ/L (136-147); UREA NITROGEN (BUN) 37 mg/dL (9-23)
[2017-01-04 08:06] VITALS: BP 99/59
[2017-01-04] MEDS ORDERED: TRAMADOL HCL50 MG PO (12:22)
[2017-01-04] MEDS ORDERED: ROCEPHIN500 MG IM (12:23)
== END 2017-01-04 15:04 | DRG 682 ==
LOC: EME 17:59 → EDOF 21:20 → 2EAST 21:20 → ENRESERV 21:28 → 2EAST 23:25
PROVIDERS: Emergency Medicine; Family Medicine; Internal Medicine Nephrology
DX: N17.9 Acute kidney failure, unspecified (principal); N39.0 Urinary tract infection, site not specified; B96.20 Unspecified Escherichia coli [E. coli] as the cause of diseases classified elsewhere; B96.4 Proteus (mirabilis) (morganii) as the cause of diseases classified elsewhere; E43 Unspecified severe protein-calorie malnutrition; E86.0 Dehydration; E87.2 Acidosis; I12.9 Hypertensive chronic kidney disease with stage 1 through stage 4 chronic kidney disease, or unspecified chronic kidney disease; N18.3 Chronic kidney disease, stage 3 (moderate); N28.1 Cyst of kidney, acquired; D63.1 Anemia in chronic kidney disease; J44.9 Chronic obstructive pulmonary disease, unspecified; I95.9 Hypotension, unspecified; M19.90 Unspecified osteoarthritis, unspecified site; Z96.653 Presence of artificial knee joint, bilateral; Z82.49 Family history of ischemic heart disease and other diseases of the circulatory system; Z83.3 Family history of diabetes mellitus; Z87.891 Personal history of nicotine dependence; Z90.49 Acquired absence of other specified parts of digestive tract; Z93.2 Ileostomy status; Z93.3 Colostomy status
CPT/HCPCS: 76770; 80048; 80053; 80069; 81003; 83735; 84300; 85025; 87077; 87086; 87186; 90686; 94640; 94640 76; 99202; 99281; 99284; J0696; J0744; J1580; J7030; J7050; Q0161

== ENCOUNTER → 2017-01-24 | Outpatient (CLI) | payer OTHER ==
[~2017-01-24] MED LIST changes: +ROCEPHIN500 MG IM
== END ==
LOC: RAD 09:00
DX: K57.30 Diverticulosis of large intestine without perforation or abscess without bleeding (principal); K63.89 Other specified diseases of intestine
CPT/HCPCS: 74270

== ENCOUNTER 2017-02-18 21:52 | Inpatient (IN) | payer OTHER ==
[~2017-02-18] VITALS: Ht 180.3 cm; Wt 110.0 kg
[2017-05-08] MEDS ORDERED: LO-DOSE ASPIRIN81 M2 PO (11:51)
[2017-05-14 05:58] VITALS: BP 132/76
[2017-05-14 13:52] VITALS: BP 129/75
[2017-05-14 16:26] VITALS: BP 133/78
[2017-05-14 19:21] VITALS: BP 119/65
[2017-05-14 23:53] VITALS: BP 98/62
[2017-05-15 03:57] VITALS: BP 108/63
[2017-05-15 07:10] VITALS: BP 125/68
[2017-05-15 14:52] LABS: BASOPHIL (%) 0.3 % (0-1); EOSINOPHIL (%) 0.3 % (0-5); HEMATOCRIT 35.6 % (38.0-50.0); HEMOGLOBIN 11.8 G/DL (12.5-16.6); IMMATURE GRANULOCYTE (%) 0.2 % (0.0-0.7); LYMPHOCYTE (%) 21.4 % (15-42); LYMPHOCYTE COUNT 1.4 K/uL (1.0-2.8); MCH 30.7 PG (29.0-34.0); MCHC 33.1 G/DL (30.0-36.0); MCV 92.7 FL (86-99); MONOCYTE (%) 14.4 % (3-12); MONOCYTE COUNT 0.9 K/uL (0-0.8); NEUTROPHIL (%) 63.4 % (45-76); PLATELET COUNT 146 K/uL (156-360); RBC DIS.WIDTH-CV 13.7 % (11.8-14.6); RBC DIS.WIDTH-SD 46.5 % (39-53); RED BLOOD COUNT 3.84 M/uL (4.00-5.50); WHITE BLOOD COUNT 6.3 K/uL (4.1-10.2)
[2017-05-15 15:09] LABS: ALBUMIN 3.7 G/DL (3.2-4.8); ALKALINE PHOSPHATASE 48 IU/L (3-129); ALT (GPT) 8 IU/L (3-49); AST (GOT) 10 IU/L (2-34); CHLORIDE 103 MEQ/L (99-109); GFR ESTIMATE (CALCULATED) 42 mL/min/ (58.99-99999); GLUCOSE 116 mg/dL (70-99); MAGNESIUM 1.8 mg/dl (1.3-2.7); PHOSPHORUS 3.2 mg/dL (2.5-4.9); POTASSIUM 4.3 MEQ/L (3.7-5.4); SODIUM 136 MEQ/L (136-147); TOTAL BILIRUBIN 0.4 MG/DL (0.0-1.0); TOTAL PROTEIN 6.6 G/DL (6.4-8.3); UREA NITROGEN (BUN) 25 mg/dL (9-23)
[2017-05-15 15:10] VITALS: BP 128/71
[2017-05-15 19:30] VITALS: BP 134/65
[2017-05-16] VITALS (7 sets, daily range): BP systolic 117–160; BP diastolic 60–88
[2017-05-16 10:33] LABS: HEMATOCRIT 40.3 % (38.0-50.0); HEMOGLOBIN 13.3 G/DL (12.5-16.6); MCH 30.4 PG (29.0-34.0); PLATELET COUNT 157 K/uL (156-360); RBC DIS.WIDTH-CV 13.4 % (11.8-14.6); RBC DIS.WIDTH-SD 45.6 % (39-53); RED BLOOD COUNT 4.38 M/uL (4.00-5.50); WHITE BLOOD COUNT 10.1 K/uL (4.1-10.2)
[2017-05-16 10:57] LABS: CHLORIDE 101 MEQ/L (99-109); MAGNESIUM 1.8 mg/dl (1.3-2.7); POTASSIUM 4.1 MEQ/L (3.7-5.4); SODIUM 133 MEQ/L (136-147)
[2017-05-16 11:03] LABS: GFR ESTIMATE (CALCULATED) 59 mL/min/ (58.99-99999); GLUCOSE 157 mg/dL (70-99); PHOSPHORUS 2.9 mg/dL (2.5-4.9); UREA NITROGEN (BUN) 21 mg/dL (9-23)
[2017-05-16 11:08] LABS: CREATININE 1.5 MG/DL (0.6-1.3)
[2017-05-17] VITALS (9 sets, daily range): BP systolic 122–169; BP diastolic 64–94
[2017-05-17 06:41] LABS: MCH 29.3 PG (29.0-34.0); MCHC 32.4 G/DL (30.0-36.0); MCV 90.2 FL (86-99); PLATELET COUNT 151 K/uL (156-360); RBC DIS.WIDTH-CV 13.1 % (11.8-14.6); RBC DIS.WIDTH-SD 43.5 % (39-53); WHITE BLOOD COUNT 9.9 K/uL (4.1-10.2)
[2017-05-17 07:08] LABS: ALBUMIN 3.4 G/DL (3.2-4.8); ALKALINE PHOSPHATASE 46 IU/L (3-129); ALT (GPT) 6 IU/L (3-49); AST (GOT) 9 IU/L (2-34); CHLORIDE 101 MEQ/L (99-109); CREATININE 1.4 MG/DL (0.6-1.3); GFR ESTIMATE (CALCULATED) > 59 mL/min/ (58.99-99999); GLUCOSE 120 mg/dL (70-99); POTASSIUM 3.8 MEQ/L (3.7-5.4); SODIUM 134 MEQ/L (136-147); TOTAL BILIRUBIN 0.5 MG/DL (0.0-1.0); TOTAL PROTEIN 6.3 G/DL (6.4-8.3); UREA NITROGEN (BUN) 18 mg/dL (9-23)
[2017-05-18 04:15] VITALS: BP 144/76
[2017-05-18 08:28] VITALS: BP 179/86
[2017-05-19] VITALS: BP 142/76
[2017-05-19 03:41] VITALS: BP 151/84
[2017-05-19 06:38] LABS: BASOPHIL (%) 0.1 % (0-1); EOSINOPHIL (%) 0.5 % (0-5); HEMATOCRIT 34.1 % (38.0-50.0); HEMOGLOBIN 11.1 G/DL (12.5-16.6); IMMATURE GRANULOCYTE (%) 0.5 % (0.0-0.7); LYMPHOCYTE COUNT 1.5 K/uL (1.0-2.8); MCH 29.4 PG (29.0-34.0); MCHC 32.6 G/DL (30.0-36.0); MCV 90.5 FL (86-99); MONOCYTE (%) 17.2 % (3-12); MONOCYTE COUNT 1.4 K/uL (0-0.8); NEUTROPHIL (%) 63.7 % (45-76); NEUTROPHIL COUNT 5.2 K/uL (1.8-6.4); RBC DIS.WIDTH-CV 13.4 % (11.8-14.6); RBC DIS.WIDTH-SD 44.5 % (39-53); RED BLOOD COUNT 3.77 M/uL (4.00-5.50); WHITE BLOOD COUNT 8.2 K/uL (4.1-10.2)
[2017-05-19 07:04] LABS: ALBUMIN 3.1 G/DL (3.2-4.8); ALKALINE PHOSPHATASE 37 IU/L (3-129); ALT (GPT) 7 IU/L (3-49); AST (GOT) 10 IU/L (2-34); CHLORIDE 105 MEQ/L (99-109); CREATININE 1.5 MG/DL (0.6-1.3); GFR ESTIMATE (CALCULATED) 59 mL/min/ (58.99-99999); GLUCOSE 125 mg/dL (70-99); MAGNESIUM 1.8 mg/dl (1.3-2.7); PHOSPHORUS 1.9 mg/dL (2.5-4.9); POTASSIUM 3.4 MEQ/L (3.7-5.4); SODIUM 137 MEQ/L (136-147); TOTAL PROTEIN 5.7 G/DL (6.4-8.3); UREA NITROGEN (BUN) 18 mg/dL (9-23)
[2017-05-19 07:05] LABS: TOTAL BILIRUBIN 0.3 MG/DL (0.0-1.0)
[2017-05-19 07:09] LABS: PLAT.SUFFICIENCY ADEQUATE; PLATELET COUNT 161 K/uL (156-360)
[2017-05-19 08:01] VITALS: BP 143/67
[2017-05-19 15:36] VITALS: BP 157/80
[2017-05-19 23:43] VITALS: BP 149/84
[2017-05-20 07:00] VITALS: BP 133/69
[2017-05-20 10:38] LABS: HEMATOCRIT 33.9 % (38.0-50.0); HEMOGLOBIN 11.2 G/DL (12.5-16.6); MCH 29.9 PG (29.0-34.0); MCV 90.6 FL (86-99); PLATELET COUNT 173 K/uL (156-360); RBC DIS.WIDTH-CV 13.3 % (11.8-14.6); RBC DIS.WIDTH-SD 43.9 % (39-53); RED BLOOD COUNT 3.74 M/uL (4.00-5.50); WHITE BLOOD COUNT 7.3 K/uL (4.1-10.2)
[2017-05-20 10:48] LABS: CHLORIDE 109 MEQ/L (99-109); MAGNESIUM 1.8 mg/dl (1.3-2.7); POTASSIUM 3.1 MEQ/L (3.7-5.4); SODIUM 140 MEQ/L (136-147)
[2017-05-20 10:56] LABS: CREATININE 1.4 MG/DL (0.6-1.3); GFR ESTIMATE (CALCULATED) > 59 mL/min/ (58.99-99999); GLUCOSE 132 mg/dL (70-99); UREA NITROGEN (BUN) 14 mg/dL (9-23)
[2017-05-20 11:07] LABS: PHOSPHORUS 2.7 mg/dL (2.5-4.9)
[2017-05-20 15:10] VITALS: BP 161/81
[2017-05-20 23:44] VITALS: BP 167/77
[2017-05-21 06:18] LABS: HEMATOCRIT 34.3 % (38.0-50.0); HEMOGLOBIN 11.3 G/DL (12.5-16.6); MCH 30.1 PG (29.0-34.0); MCHC 32.9 G/DL (30.0-36.0); MCV 91.5 FL (86-99); PLATELET COUNT 182 K/uL (156-360); RBC DIS.WIDTH-CV 13.4 % (11.8-14.6); RED BLOOD COUNT 3.75 M/uL (4.00-5.50); WHITE BLOOD COUNT 6.7 K/uL (4.1-10.2)
[2017-05-21 07:01] LABS: CHLORIDE 112 MEQ/L (99-109); POTASSIUM 3.4 MEQ/L (3.7-5.4); SODIUM 141 MEQ/L (136-147)
[2017-05-21 07:06] LABS: CREATININE 1.4 MG/DL (0.6-1.3); GFR ESTIMATE (CALCULATED) > 59 mL/min/ (58.99-99999); GLUCOSE 112 mg/dL (70-99); UREA NITROGEN (BUN) 9 mg/dL (9-23)
[2017-05-21 07:25] VITALS: BP 170/75
[2017-05-21 14:56] VITALS: BP 133/78
[2017-05-21 23:18] VITALS: BP 159/77
[2017-05-22 07:47] VITALS: BP 110/66
[2017-05-22 11:59] VITALS: BP 120/70
[2017-05-22 16:42] VITALS: BP 159/91
[2017-05-22 23:52] VITALS: BP 163/90
[2017-05-23 07:23] VITALS: BP 163/78
[2017-05-23] MEDS ORDERED: METAMUCIL PACK3.4 GM PO (14:24)
[2017-05-23] MEDS ORDERED: NORCO 5/3251 TABLET PO (14:24)
[2017-05-23] MEDS ORDERED: ONDANSETRON4 MG/2 ML IV (14:24)
[2017-05-23] MEDS ORDERED: CHLORPROMAZINE50 MG PO (14:24)
[2017-05-23 16:03] VITALS: BP 155/71
== END 2017-05-23 17:30 | disposition home or self-care (01) | DRG 348 ==
LOC: 2SOUTH → ENRESERV 21:52 → CANRESERV 21:52 → 2SOUTH 02-19 10:23 → SDC 02-19 13:33 → EDSTATUS 02-19 13:33 → 2SOUTH 02-19 13:35 → ENRESERV 05-13 21:30 → 2SOUTH 05-14 05:22 → ENRESERV 05-14 12:21 → 5EAST 05-14 12:54 → 2SOUTH 05-14 15:21 → ENPENDDIS 05-23 16:30 → 5EAST 05-23 17:30
PROVIDERS: Physician Assistant Surgical; Surgery
DX: Z43.2 Encounter for attention to ileostomy (principal); N17.9 Acute kidney failure, unspecified; K43.5 Parastomal hernia without obstruction or gangrene; R06.6 Hiccough; K66.0 Peritoneal adhesions (postprocedural) (postinfection); E66.9 Obesity, unspecified; N13.8 Other obstructive and reflux uropathy; N18.3 Chronic kidney disease, stage 3 (moderate); R33.8 Other retention of urine; I10 Essential (primary) hypertension; N40.1 Benign prostatic hyperplasia with lower urinary tract symptoms; N28.1 Cyst of kidney, acquired; Z96.659 Presence of unspecified artificial knee joint; Z88.8 Allergy status to other drugs, medicaments and biological substances; Z91.013 Allergy to seafood; Z43.3 Encounter for attention to colostomy; Z88.0 Allergy status to penicillin; Z87.891 Personal history of nicotine dependence; Z68.33 Body mass index [BMI] 33.0-33.9, adult
CPT/HCPCS: 74018; 80048; 80053; 82948; 83735; 84100; 85025; 85027; 88307; 94010; 94640; 94640 76; 94799; 97530 GO; 99202; C1781; J0744; J1100; J1170; J1650; J2405; J2710; J3010; J3480; J7040; J7120; Q0161; S0030; S0074

== ENCOUNTER → 2017-02-18 | Outpatient (CLI) | payer MEDICARE, OTHER ==
[~2017-02-18] MED LIST changes: +VIAGRA100 MG PO
== END | disposition home or self-care (01) ==
LOC: CDC 08:40
DX: Z01.810 Encounter for preprocedural cardiovascular examination (principal); K92.2 Gastrointestinal hemorrhage, unspecified; R94.31 Abnormal electrocardiogram [ECG] [EKG]
CPT/HCPCS: 93000

== ENCOUNTER 2017-06-29 12:25 | Observation (INO) | payer OTHER ==
[~2017-06-29] VITALS: Ht 180.3 cm; Wt 113.0 kg
[~2017-06-29 12:25] MED LIST changes: +LO-DOSE ASPIRIN81 M2 PO; +METAMUCIL PACK3.4 GM PO; +NORCO 5/3251 TABLET PO; +ONDANSETRON4 MG/2 ML IV
[2017-06-29 13:13] LABS: HEMOGLOBIN 11.6 G/DL (12.5-16.6); MCH 30.2 PG (29.0-34.0); MCHC 32.2 G/DL (30.0-36.0); MCV 93.8 FL (86-99); PLATELET COUNT 167 K/uL (156-360); RBC DIS.WIDTH-SD 51.7 % (39-53); RED BLOOD COUNT 3.84 M/uL (4.00-5.50); WHITE BLOOD COUNT 4.4 K/uL (4.1-10.2)
[2017-06-29 13:22] LABS: CHLORIDE 108 mEq/L (99-109); POTASSIUM 4.1 mEq/L (3.7-5.4); SODIUM 140 mEq/L (136-147)
[2017-06-29 13:24] LABS: GLUCOSE 119 mg/dL (70-99)
[2017-06-29 13:27] LABS: CREATININE 1.7 mg/dL (0.6-1.3); GFR ESTIMATE (CALCULATED) 51 mL/min/ (58.99-99999)
[2017-06-29 13:28] LABS: UREA NITROGEN (BUN) 20 mg/dL (9-23)
[2017-06-29 13:42] LABS: ALBUMIN 3.8 g/dL (3.2-4.8); INTER. NORMALIZED RATIO 1.1
[2017-06-29 13:45] LABS: PTT 28.9 SEC (25-37); TOTAL PROTEIN 7.4 g/dL (6.4-8.3)
[2017-06-29 13:47] LABS: TOTAL BILIRUBIN 0.5 mg/dL (0.0-1.0)
[2017-06-29 13:48] LABS: ALKALINE PHOSPHATASE 58 IU/L (3-129)
[2017-06-29 13:50] LABS: AST (GOT) 8 IU/L (2-34)
[2017-06-29 13:51] LABS: ALT (GPT) 7 IU/L (3-49); DIRECT BILIRUBIN 0.2 mg/dL (0.0-0.3)
[2017-06-29] MEDS ORDERED: ASPIR-LOW81 MG PO (17:51)
[2017-06-29] MEDS ORDERED: TRAVATAN Z5 ML BOTH EYES (17:57)
[2017-06-29] MEDS ORDERED: LISINOPRIL40 MG PO (17:58)
[2017-06-29] MEDS ORDERED: FLOVENT DISKUS1 DIS2 IH (18:01)
[2017-06-29] MEDS ORDERED: COSOPT EYE DROP10 ML BOTH EYES (18:05)
[2017-06-29] MEDS ORDERED: PROAIR RESPICL90 MCG IH (18:07)
[2017-06-29] MEDS ORDERED: REFRESH TEARS15 ML BOTH EYES (18:13)
[2017-06-29 19:25] LABS: HEMATOCRIT 34.8 % (38.0-50.0); HEMOGLOBIN 11.2 G/DL (12.5-16.6); MCV 93.3 FL (86-99)
[2017-06-29 20:26] VITALS: BP 183/86
[2017-06-30 00:18] VITALS: BP 152/79
[2017-06-30 01:05] LABS: HEMATOCRIT 33.8 % (38.0-50.0); HEMOGLOBIN 10.9 G/DL (12.5-16.6); MCV 93.1 FL (86-99)
[2017-06-30 03:39] VITALS: BP 167/77
[2017-06-30 06:20] LABS: HEMATOCRIT 32.5 % (38.0-50.0); HEMOGLOBIN 10.2 G/DL (12.5-16.6); MCV 93.7 FL (86-99)
[2017-06-30 06:44] LABS: CHLORIDE 109 MEQ/L (99-109); CREATININE 1.4 MG/DL (0.6-1.3); GFR ESTIMATE (CALCULATED) > 59 mL/min/ (58.99-99999); GLUCOSE 92 mg/dL (70-99); POTASSIUM 3.8 MEQ/L (3.7-5.4); SODIUM 142 MEQ/L (136-147); UREA NITROGEN (BUN) 15 mg/dL (9-23)
[2017-06-30 07:14] VITALS: BP 166/90
[2017-06-30 12:29] VITALS: BP 128/87
[2017-06-30 13:16] LABS: HEMATOCRIT 33.3 % (38.0-50.0); HEMOGLOBIN 10.7 G/DL (12.5-16.6); MCV 94.1 FL (86-99)
== END 2017-06-30 14:32 | disposition home or self-care (01) ==
LOC: EME 12:25 → 5WEST 17:50 → EDOF 17:50 → ENRESERV 18:08 → 5WEST 20:01
PROVIDERS: Family Medicine; Physician Assistant Medical
DX: K62.5 Hemorrhage of anus and rectum (principal); D64.9 Anemia, unspecified; K57.90 Diverticulosis of intestine, part unspecified, without perforation or abscess without bleeding; N28.9 Disorder of kidney and ureter, unspecified; Z86.010 Personal history of colon polyps; Z87.19 Personal history of other diseases of the digestive system; Z90.49 Acquired absence of other specified parts of digestive tract; I10 Essential (primary) hypertension; M19.90 Unspecified osteoarthritis, unspecified site; Z87.891 Personal history of nicotine dependence; H40.9 Unspecified glaucoma; Z96.659 Presence of unspecified artificial knee joint; Z88.0 Allergy status to penicillin; Z91.013 Allergy to seafood
CPT/HCPCS: 74177; 80048; 80076; 85014; 85018; 85027; 85610; 85730; 86850; 86900; 86901; 94640; 94760; 99202; 99281; 99285; G0378; J7030